=== PATIENT | male | born 1955 | race Caucasian/White ===

== ENCOUNTER → 2021-01-15 | Outpatient (CLI) | payer OTHER | LOC: CT 13:00 | DX: C32.9 Malignant neoplasm of larynx, unspecified (principal); J38.2 Nodules of vocal cords; R91.1 Solitary pulmonary nodule | CPT/HCPCS: 70470; 70491; 71260; Q9967 ==

== ENCOUNTER 2021-11-17 21:07 | Emergency (ER) | payer MEDICARE, OTHER ==
[2021-11-17 21:47] LABS: HEMOGLOBIN 8.5 gm/dl (14.0-17.5); RED BLOOD COUNT 3.1 M/UL (4.20-5.50); WHITE BLOOD COUNT 9.8 K/UL (4.5-11.0)
[2021-11-17 22:13] LABS: BUN/CREATININE RATIO 39 (0-10)
[2021-11-17] MEDS ORDERED: DOXYCYCLINE HY100 M2 PO (23:24)
== END 2021-11-17 23:45 ==
LOC: ER1 21:07
PROVIDERS: Physician Assistant
DX: C32.9 Malignant neoplasm of larynx, unspecified (principal); C77.9 Secondary and unspecified malignant neoplasm of lymph node, unspecified; J44.0 Chronic obstructive pulmonary disease with (acute) lower respiratory infection; J18.9 Pneumonia, unspecified organism; D64.9 Anemia, unspecified; E11.22 Type 2 diabetes mellitus with diabetic chronic kidney disease; E11.9 Type 2 diabetes mellitus without complications; I12.9 Hypertensive chronic kidney disease with stage 1 through stage 4 chronic kidney disease, or unspecified chronic kidney disease; N18.9 Chronic kidney disease, unspecified; W19.XXXA Unspecified fall, initial encounter; Y92.129 Unspecified place in nursing home as the place of occurrence of the external cause
CPT/HCPCS: 36600; 70450; 71045; 72125; 80053; 82550; 82553; 82803; 84484; 85025; 93005; 99285